=== PATIENT | male | born 1960 | race African-American/Black ===

== ENCOUNTER 2019-09-25 09:09 | Inpatient (IN) ==
[2019-09-25] MEDS ORDERED: ALBUTEROL/IPRATROPIUM 3 ML NEB RESP TX STA (09:28)
[2019-09-25 09:37] LABS: Basophils % 0.2 % (0.0-0.8); Eosinophils # 0.2 10*3/uL (0.0-0.87); Eosinophils % 1.7 % (0.00-10.9); Hematocrit 50.6 VOL% (42.0-52.0); Immature Granulocytes % 0.3 %; Immature Granulocytes Absolute 0.03 #; Lymphocytes # 1.7 10*3/uL (1.4-4.0); Lymphocytes % 18.9 % (21.2-54.2); Mean Corpuscular HGB Conc 31.6 GM/DL (32-36); Mean Corpuscular Volume 96.2 FL (87-102); Mean Platelet Volume 11.4 FL (9.6-12.0); Monocytes % 6.2 % (1.7-12.7); Neutrophils % 72.7 % (38.7-73.9); Platelet Count 161 T/CUMM (130-400); Red Blood Count 5.26 MC/CUMM (3.8-5.5); Red Cell Distribution Width 14.6 % (9.3-17.3); White Blood Count 9.1 T/CUMM (4-12)
[2019-09-25 09:54] LABS: Albumin 3.2 G/DL (3.4-5.0); Bilirubin,Total 0.6 MG/DL (0.2-1.0); Calcium 8.9 MG/DL (8.5-10.1); Osmolality,Calculated 274.7 MOS/KG (273-304); Total Protein 7.7 G/DL (6.4-8.3)
[2019-09-25] MEDS ORDERED: LABETALOL 100 MG/20 ML VIAL IV STA (10:20)
[2019-09-25] MEDS ORDERED: LABETALOL 20 MG/4 ML SYRINGE IV ONE (10:27)
[2019-09-25] MEDS ORDERED: ONDANSETRON 4 MG/2 ML VIAL IV PRN (11:46)
[2019-09-25] MEDS ORDERED: FUROSEMIDE 20 MG/2 ML VIAL IV ONE (12:26)
[2019-09-25 12:41] LABS: Apearance,Urine CLOUDY (Clear); Bilirubin,Urine Negative (Negative); Blood, Urine Small mg/dL (Negative); Glucose,Urine (UA) 150 mg/dL (Negative); Hyaline Casts,Urine 2 /LPF (0-3); Ketones,Urine 20 mg/dL (Negative); Mucus,Urine Occasional /LPF (Occasional); Nitrite,Urine Negative (Negative); Protein,Urine >=500 MG/DL; RBC,Urine 7 /HPF (0-4); Squamous Epithelial Cell,Urine Occasional /HPF (0-10); Urine Color Amber (Yellow); Urine Specific Gravity 1.027 (1.001-1.035); Urine Urobilinogen < 2.0 EU/DL (0.2-1.0); WBC,Urine 45 /HPF (0-6)
[2019-09-25 12:44] LABS: Barbiturates Screen,Urine Negative (Negative); Benzodiazepines Screen,Urine Negative (Negative); Cannabinoid Screen,Urine Positive (Negative); Opiate Screen,Urine Negative (Negative); Phencyclidine Screen,Urine Negative (Negative)
[2019-09-25] MEDS: ALBUTEROL/IPRATROPIUM 3 ML NEB RESP TX SCH ×3 (14:03→22:31)
[2019-09-25] MEDS: NICOTINE 14 MG/24 HR PATCH TRANSDERM SCH (15:15)
[2019-09-26] MEDS: ALBUTEROL/IPRATROPIUM 3 ML NEB RESP TX SCH ×6 (02:36→23:20)
[2019-09-26] MEDS: hydrALAZINE 20 MG/1 ML VIAL IV PRN ×2 (04:47→09:00)
[2019-09-26 07:04] LABS: Basophils % 0.1 % (0.0-0.8); Eosinophils % 0.3 % (0.00-10.9); Hematocrit 50.1 VOL% (42.0-52.0); Hemoglobin 15.6 GM/DL (14.0-18.0); Immature Granulocytes % 0.3 %; Immature Granulocytes Absolute 0.02 #; Lymphocytes # 1.5 10*3/uL (1.4-4.0); Lymphocytes % 20.5 % (21.2-54.2); Mean Corpuscular HGB Conc 31.1 GM/DL (32-36); Mean Corpuscular Volume 97.9 FL (87-102); Mean Platelet Volume 11.8 FL (9.6-12.0); Monocytes % 11.2 % (1.7-12.7); Neutrophils % 67.6 % (38.7-73.9); Platelet Count 164 T/CUMM (130-400); Red Blood Count 5.12 MC/CUMM (3.8-5.5); Red Cell Distribution Width 14.6 % (9.3-17.3); White Blood Count 7.4 T/CUMM (4-12)
[2019-09-26 07:28] LABS: Calcium 8.7 MG/DL (8.5-10.1); Thyroid Stimulating Hormone 0.164 uIU/ml (0.358-3.74)
[2019-09-26] MEDS: NICOTINE 14 MG/24 HR PATCH TRANSDERM SCH (08:55)
[2019-09-26] MEDS: PANTOPRAZOLE 40 MG TABLET PO SCH (08:56)
[2019-09-26] MEDS ORDERED: lisinopriL 10 MG TABLET PO SCH (09:00)
[2019-09-26] MEDS ORDERED: methylPREDNISolone SOD SUC 40 MG/1 ML VIAL IV ONE (12:28)
[2019-09-26] MEDS ORDERED: FUROSEMIDE 40 MG/4 ML VIAL IV ONE (12:30)
[2019-09-26] MEDS ORDERED: hydroCHLOROthiazide 12.5 MG CAPSULE PO ONE (12:44)
[2019-09-26] MEDS ORDERED: methylPREDNISolone SOD SUC 125 MG/2 ML VIAL IV STA (21:47)
[2019-09-26] MEDS: diphenhydrAMINE 50 MG/1 ML VIAL IV SCH (23:06)
[2019-09-27] MEDS: ALBUTEROL/IPRATROPIUM 3 ML NEB RESP TX SCH ×7 (03:17→23:25)
[2019-09-27] MEDS: diphenhydrAMINE 50 MG/1 ML VIAL IV SCH ×2 (05:09→11:48)
[2019-09-27 05:38] LABS: Calcium 9.3 MG/DL (8.5-10.1); Osmolality,Calculated 272.2 MOS/KG (273-304)
[2019-09-27 05:55] LABS: Basophils % 0.1 % (0.0-0.8); Eosinophils % 0.1 % (0.00-10.9); Hematocrit 57.6 VOL% (42.0-52.0); Hemoglobin 17.7 GM/DL (14.0-18.0); Immature Granulocytes % 0.6 %; Immature Granulocytes Absolute 0.06 #; Lymphocytes # 0.7 10*3/uL (1.4-4.0); Mean Corpuscular HGB Conc 30.7 GM/DL (32-36); Mean Corpuscular Volume 97.3 FL (87-102); Mean Platelet Volume 12.5 FL (9.6-12.0); Monocytes % 1.1 % (1.7-12.7); Neutrophils % 91.1 % (38.7-73.9); Platelet Count 176 T/CUMM (130-400); Red Blood Count 5.92 MC/CUMM (3.8-5.5); Red Cell Distribution Width 14.6 % (9.3-17.3); White Blood Count 10.4 T/CUMM (4-12)
[2019-09-27 06:14] LABS: Band Neutrophils 3 % (0-10); Lymphocytes 4 % (20-55); Segmented Neutrophils 93 % (50-85); Total Cells Counted 100
[2019-09-27 06:15] LABS: Anisocytosis 1+; Platelet Estimate Adequate
[2019-09-27] MEDS: methylPREDNISolone SOD SUC 40 MG/1 ML VIAL IV SCH (08:41)
[2019-09-27] MEDS: hydroCHLOROthiazide 12.5 MG CAPSULE PO SCH (08:42)
[2019-09-27] MEDS: NICOTINE 14 MG/24 HR PATCH TRANSDERM SCH (08:42)
[2019-09-27] MEDS: PANTOPRAZOLE 40 MG TABLET PO SCH (08:43)
[2019-09-27] MEDS ORDERED: LISINOPRIL/HCTZ 10-12.5 MG TABLET PO SCH (09:00)
[2019-09-27] MEDS: ACETAMINOPHEN 325 MG TABLET PO PRN (20:40)
[2019-09-28] MEDS: ALBUTEROL/IPRATROPIUM 3 ML NEB RESP TX SCH ×5 (03:51→21:21)
[2019-09-28] MEDS: hydroCHLOROthiazide 12.5 MG CAPSULE PO SCH (08:47)
[2019-09-28] MEDS: PANTOPRAZOLE 40 MG TABLET PO SCH (08:47)
[2019-09-28] MEDS: NICOTINE 14 MG/24 HR PATCH TRANSDERM SCH (08:49)
[2019-09-28] MEDS: methylPREDNISolone SOD SUC 40 MG/1 ML VIAL IV SCH ×2 (08:50→21:32)
[2019-09-28] MEDS: FUROSEMIDE 40 MG/4 ML VIAL IV SCH (08:51)
[2019-09-28] MEDS: hydrALAZINE 20 MG/1 ML VIAL IV PRN (08:52)
[2019-09-28] MEDS ORDERED: ALBUTEROL/IPRATROPIUM 3 ML NEB RESP TX PRN (16:05)
[2019-09-28] MEDS ORDERED: FUROSEMIDE 40 MG/4 ML VIAL IV ONE (16:05)
[2019-09-28] MEDS ORDERED: ALBUTEROL/IPRATROPIUM 3 ML NEB RESP TX ONE (16:05)
[2019-09-28] MEDS: ACETAMINOPHEN 325 MG TABLET PO PRN (21:33)
[2019-09-29] MEDS: ALBUTEROL/IPRATROPIUM 3 ML NEB RESP TX SCH ×5 (00:25→14:57)
[2019-09-29 06:24] LABS: Basophils % 0.2 % (0.0-0.8); Hematocrit 52.9 VOL% (42.0-52.0); Hemoglobin 16.5 GM/DL (14.0-18.0); Immature Granulocytes % 0.6 %; Immature Granulocytes Absolute 0.06 #; Lymphocytes # 1.1 10*3/uL (1.4-4.0); Lymphocytes % 10.9 % (21.2-54.2); Mean Corpuscular HGB Conc 31.2 GM/DL (32-36); Mean Corpuscular Volume 96.9 FL (87-102); Mean Platelet Volume 12.5 FL (9.6-12.0); Monocytes % 3.6 % (1.7-12.7); Neutrophils % 84.7 % (38.7-73.9); Platelet Count 174 T/CUMM (130-400); Red Blood Count 5.46 MC/CUMM (3.8-5.5); Red Cell Distribution Width 14.6 % (9.3-17.3); White Blood Count 9.7 T/CUMM (4-12)
[2019-09-29 06:31] LABS: Calcium 9.2 MG/DL (8.5-10.1); Osmolality,Calculated 278.1 MOS/KG (273-304)
[2019-09-29] MEDS: NICOTINE 14 MG/24 HR PATCH TRANSDERM SCH (09:05)
[2019-09-29] MEDS: methylPREDNISolone SOD SUC 40 MG/1 ML VIAL IV SCH (09:06)
[2019-09-29] MEDS: PANTOPRAZOLE 40 MG TABLET PO SCH (09:06)
[2019-09-29] MEDS: FUROSEMIDE 40 MG/4 ML VIAL IV SCH (09:06)
[2019-09-29] MEDS: hydroCHLOROthiazide 12.5 MG CAPSULE PO SCH (09:06)
[2019-09-29 16:29] VITALS: BP 148/81
== END 2019-09-29 16:46 | disposition home or self-care (01) | DRG 190 ==
LOC: N.ED 09:09 → N.EDINP 09:09 → N.2W 12:11 → SUATTDRO 09-26 12:51 → N.2E 09-27 15:00
PROVIDERS: ADMIT Internal Medicine; ATTEND Family Medicine

== ENCOUNTER 2021-05-02 21:23 | Inpatient (IN) ==
[2021-05-03] MEDS ORDERED: ALBUTEROL 2.5 MG/3 ML NEB RESP TX PRN (00:26)
[2021-05-03] MEDS ORDERED: ACETAMINOPHEN 325 MG TABLET PO PRN (00:26)
[2021-05-03] MEDS ORDERED: DEXTROSE 50% 25 GM/50 ML VIAL IV PRN ×2 (00:26)
[2021-05-03] MEDS ORDERED: GLUCAGON 1 MG VIAL IM PRN (00:26)
[2021-05-03] MEDS ORDERED: ONDANSETRON 4 MG/2 ML VIAL IV PRN (00:26)
[2021-05-03] MEDS: LEVOFLOXACIN INJ 750 MG/150 ML PREMIX IV SCH (01:32)
[2021-05-03] MEDS ORDERED: hydrALAZINE 20 MG/1 ML VIAL IV PRN (01:47)
[2021-05-03] MEDS: ALBUTEROL/IPRATROPIUM 3 ML NEB RESP TX SCH ×4 (02:26→19:00)
[2021-05-03 05:23] LABS: Basophils % 0.1 % (0.0-0.8); Hematocrit 49.3 VOL% (42.0-52.0); Hemoglobin 15.1 GM/DL (14.0-18.0); Immature Granulocytes % 0.9 %; Immature Granulocytes Absolute 0.09 #; Lymphocytes # 0.4 10*3/uL (1.4-4.0); Lymphocytes % 4.3 % (21.2-54.2); Mean Corpuscular HGB Conc 30.6 GM/DL (32-36); Mean Corpuscular Volume 93.2 FL (87-102); Mean Platelet Volume 12.8 FL (9.6-12.0); Monocytes % 2.5 % (1.7-12.7); Neutrophils % 92.2 % (38.7-73.9); Platelet Count 146 T/CUMM (130-400); Red Blood Count 5.29 MC/CUMM (3.8-5.5); Red Cell Distribution Width 15.4 % (9.3-17.3)
[2021-05-03 05:34] LABS: Lymphocytes 3 % (20-55); Platelet Estimate Normal; Segmented Neutrophils 96 % (50-85); Total Cells Counted 100
[2021-05-03 05:36] LABS: Albumin 2.6 G/DL (3.4-5.0); Bilirubin,Total 0.7 MG/DL (0.20-1.00); Calcium 8.2 MG/DL (8.5-10.1); Osmolality,Calculated 284.3 MOS/KG (273-304); Potassium 4.5 MMOL/L (3.5-5.1); Total Protein 6.2 G/DL (6.4-8.2)
[2021-05-03] MEDS: INSULIN REGULAR 100 UNIT/ML SUBCUT SCH ×4 (08:56→21:20)
[2021-05-03] MEDS: APIXABAN 5 MG TABLET PO SCH ×2 (08:57→21:19)
[2021-05-03] MEDS: DILTIAZEM CD 120 MG CAPSULE PO SCH (08:57)
[2021-05-03] MEDS: THEOPHYLLINE ER (24 HR) 400 MG CAPSULE PO SCH (08:58)
[2021-05-03] MEDS: amLODIPine 10 MG TABLET PO SCH (08:58)
[2021-05-03] MEDS: PANTOPRAZOLE 40 MG TABLET PO SCH (08:58)
[2021-05-03] MEDS: predniSONE 20 MG TABLET PO SCH (08:58)
[2021-05-03] MEDS: DIGOXIN 0.125 MG TABLET PO SCH (14:21)
[2021-05-04] MEDS: LEVOFLOXACIN INJ 750 MG/150 ML PREMIX IV SCH (00:36)
[2021-05-04] MEDS: ALBUTEROL/IPRATROPIUM 3 ML NEB RESP TX SCH ×4 (01:07→19:54)
[2021-05-04 05:31] LABS: Calcium 8.2 MG/DL (8.5-10.1); Osmolality,Calculated 280.1 MOS/KG (273-304); Potassium 4.8 MMOL/L (3.5-5.1)
[2021-05-04 06:30] LABS: Basophils % 0.1 % (0.0-0.8); Hematocrit 45.6 VOL% (42.0-52.0); Hemoglobin 13.2 GM/DL (14.0-18.0); Immature Granulocytes % 0.7 %; Immature Granulocytes Absolute 0.11 #; Lymphocytes # 1.1 10*3/uL (1.4-4.0); Lymphocytes % 6.6 % (21.2-54.2); Mean Corpuscular HGB Conc 28.9 GM/DL (32-36); Mean Platelet Volume 12.4 FL (9.6-12.0); Monocytes % 7.9 % (1.7-12.7); Neutrophils % 84.7 % (38.7-73.9); Red Blood Count 4.75 MC/CUMM (3.8-5.5); Red Cell Distribution Width 15.3 % (9.3-17.3)
[2021-05-04 06:41] LABS: Platelet Count 124 T/CUMM (130-400); White Blood Count 15.9 T/CUMM (4-12)
[2021-05-04] MEDS: INSULIN REGULAR 100 UNIT/ML SUBCUT SCH ×4 (07:22→20:47)
[2021-05-04] MEDS: THEOPHYLLINE ER (24 HR) 400 MG CAPSULE PO SCH (08:41)
[2021-05-04] MEDS: amLODIPine 10 MG TABLET PO SCH (08:42)
[2021-05-04] MEDS: predniSONE 20 MG TABLET PO SCH (08:43)
[2021-05-04] MEDS: PANTOPRAZOLE 40 MG TABLET PO SCH (08:43)
[2021-05-04] MEDS: APIXABAN 5 MG TABLET PO SCH ×2 (08:43→20:47)
[2021-05-04] MEDS: DILTIAZEM CD 120 MG CAPSULE PO SCH (08:43)
[2021-05-04] MEDS: DIGOXIN 0.125 MG TABLET PO SCH (13:27)
[2021-05-05] MEDS: ALBUTEROL/IPRATROPIUM 3 ML NEB RESP TX SCH ×4 (00:10→18:52)
[2021-05-05] MEDS: LEVOFLOXACIN INJ 750 MG/150 ML PREMIX IV SCH (01:56)
[2021-05-05 05:28] LABS: Calcium 8.5 MG/DL (8.5-10.1); Osmolality,Calculated 271.8 MOS/KG (273-304)
[2021-05-05 05:50] LABS: Basophils % 0.1 % (0.0-0.8); Eosinophils % 0.1 % (0.00-10.9); Hematocrit 44.3 VOL% (42.0-52.0); Hemoglobin 13.7 GM/DL (14.0-18.0); Immature Granulocytes % 0.7 %; Immature Granulocytes Absolute 0.09 #; Lymphocytes # 1.1 10*3/uL (1.4-4.0); Lymphocytes % 8.1 % (21.2-54.2); Mean Corpuscular HGB Conc 30.9 GM/DL (32-36); Mean Corpuscular Volume 93.3 FL (87-102); Mean Platelet Volume 14.4 FL (9.6-12.0); Monocytes % 7.4 % (1.7-12.7); Neutrophils % 83.6 % (38.7-73.9); Red Blood Count 4.75 MC/CUMM (3.8-5.5); Red Cell Distribution Width 15.2 % (9.3-17.3); White Blood Count 13.4 T/CUMM (4-12)
[2021-05-05 05:52] LABS: Platelet Count 89 T/CUMM (130-400)
[2021-05-05 06:09] LABS: Potassium 4.5 MMOL/L (3.5-5.1)
[2021-05-05 06:10] LABS: Hypochromasia Slight; Microcytosis Slight; Platelet Estimate Decreased
[2021-05-05] MEDS: INSULIN REGULAR 100 UNIT/ML SUBCUT SCH ×4 (08:45→22:16)
[2021-05-05] MEDS: predniSONE 20 MG TABLET PO SCH (08:47)
[2021-05-05] MEDS: amLODIPine 10 MG TABLET PO SCH (08:48)
[2021-05-05] MEDS: APIXABAN 5 MG TABLET PO SCH ×2 (08:48→22:17)
[2021-05-05] MEDS: THEOPHYLLINE ER (24 HR) 400 MG CAPSULE PO SCH (08:48)
[2021-05-05] MEDS: DILTIAZEM CD 120 MG CAPSULE PO SCH (08:48)
[2021-05-05] MEDS: PANTOPRAZOLE 40 MG TABLET PO SCH (08:48)
[2021-05-05] MEDS: DIGOXIN 0.125 MG TABLET PO SCH (17:31)
[2021-05-06] MEDS: ALBUTEROL/IPRATROPIUM 3 ML NEB RESP TX SCH ×3 (00:20→13:35)
[2021-05-06] MEDS: LEVOFLOXACIN INJ 750 MG/150 ML PREMIX IV SCH (01:56)
[2021-05-06] MEDS: DILTIAZEM CD 120 MG CAPSULE PO SCH (08:41)
[2021-05-06] MEDS: THEOPHYLLINE ER (24 HR) 400 MG CAPSULE PO SCH (08:41)
[2021-05-06] MEDS: APIXABAN 5 MG TABLET PO SCH (08:41)
[2021-05-06] MEDS: predniSONE 20 MG TABLET PO SCH (08:42)
[2021-05-06] MEDS: PANTOPRAZOLE 40 MG TABLET PO SCH (08:42)
[2021-05-06] MEDS: amLODIPine 10 MG TABLET PO SCH (08:42)
[2021-05-06] MEDS: INSULIN REGULAR 100 UNIT/ML SUBCUT SCH ×3 (08:43→15:40)
[2021-05-06] MEDS: DIGOXIN 0.125 MG TABLET PO SCH (15:41)
[2021-05-06 16:59] VITALS: BP 136/72
== END 2021-05-06 17:25 | disposition home or self-care (01) | DRG 191 ==
LOC: EDUNIT# → EDBD → N.EDINP 21:23 → N.ED 21:23 → N.CC 05-03 04:25 → N.4E 05-04 18:12
PROVIDERS: ADMIT Internal Medicine; ATTEND Internal Medicine